=== PATIENT | female | born 2000 | race Two or more races ===

== ENCOUNTER → 2023-03-25 | Emergency (ER) | payer OTHER ==
[~2023-03-25] VITALS: Ht 152.4 cm; Wt 74.4 kg
[~2023-03-25] MED LIST: PRENA1 TRUE CO1 EACH PO
== END | disposition home or self-care (01) ==
LOC: ER 13:00
DX: O20.8 Other hemorrhage in early pregnancy (principal); Z3A.08 8 weeks gestation of pregnancy

== ENCOUNTER 2023-06-22 10:17 | Outpatient (CLI) | payer OTHER | END 2023-06-22 12:10 | disposition home or self-care (01) | LOC: PRENATAL 10:17 | PROVIDERS: ATTEND Obstetrics & Gynecology Maternal & Fetal Medicine | DX: O35.3XX0 Maternal care for (suspected) damage to fetus from viral disease in mother, not applicable or unspecified (principal); O44.00 Complete placenta previa NOS or without hemorrhage, unspecified trimester; Z3A.21 21 weeks gestation of pregnancy ==